=== PATIENT | female | born 1935 | race Caucasian/White ===

== ENCOUNTER → 2017-02-04 | Outpatient (CLI) | payer MEDICARE | END | disposition home or self-care (01) | LOC: RAD.S 02-27 17:09 → PTH.S 15:29 → RAD.S 16:00 → PTH.S 02-19 09:30 | DX: R91.8 Other nonspecific abnormal finding of lung field (principal); J84.9 Interstitial pulmonary disease, unspecified; R59.0 Localized enlarged lymph nodes ==

== ENCOUNTER → 2017-02-13 | Outpatient (CLI) | payer MEDICARE | END | disposition home or self-care (01) | LOC: RESC 02-07 10:42 | DX: R06.02 Shortness of breath (principal); R94.2 Abnormal results of pulmonary function studies ==